=== PATIENT | female | born 1965 | race Caucasian/White ===

== ENCOUNTER 2021-10-19 16:18 | Emergency (ER) | payer SELFPAY ==
[~2021-10-19] VITALS: Ht 165.1 cm; Wt 62.6 kg
--- NOTE | 2021-10-19 16:50 | NUR ---
BIB DAUGHTER C/O R FLANK PAIN AND FEVER LAST NIGHT. AAOX4, VSS. RR EVEN & UNLABORED. DENIES CP, SOB, DIZZINESS, N/V. WILL CONT TO MONITOR,
--- NOTE | 2021-10-19 17:00 | NUR ---
DR. MORALES AT BS FOR YOUNGAL.
[2021-10-19 18:50] LABS: CALCIUM, SERUM 8.7 mg/dL (8.5-10.1); CREATININE 0.9 mg/dL (0.6-1.3); POTASSIUM 3.5 mmol/L (3.5-5.1)
--- NOTE | 2021-10-19 18:50 | NUR ---
PT STABLE, NAD NOTED AT THIS TIME. WILL CONT TO MONITOR.
[2021-10-19 18:56] LABS: ALBUMIN 3.8 g/dL (3.4-5.0); BILIRUBIN,DIRECT 0.1 mg/dL (0.0-0.2); BILIRUBIN,TOTAL 0.2 mg/dL (0.2-1.0); TOTAL PROTEIN, SERUM 7.4 g/dL (6.4-8.2)
[2021-10-19 19:46] LABS: BILIRUBIN,URINE NEGATIVE (NEGATIVE); COLOR,URINE YELLOW (YELLOW); LEUKOCYTE ESTERASE ,URINE NEGATIVE (NEGATIVE); NITRITE, URINE NEGATIVE (NEGATIVE); PROTEIN,URINE NEGATIVE (NEGATIVE); UGLUCOSE NEGATIVE (NEGATIVE); UROBILINOGEN,URINE 0.2 EU/dL (0.2)
[2021-10-19 19:49] LABS: BASOPHILS % (AUTO) 0.6 % (0.0-2.0); EOSINOPHILS % (AUTO) 0.1 % (0.0-6.0); HEMATOCRIT 41 % (33-45); HEMOGLOBIN 13.8 g/dL (11.5-14.8); LYMPHOCYTES # (AUTO) 1.1 K/uL (0.8-4.8); MEAN CORPUSCULAR HGB CONC 34 g/dl (31.0-36.0); MEAN CORPUSCULAR VOLUME 90 fL (82-100); MONOCYTES # (AUTO) 0.6 K/uL (0.1-1.30); MONOCYTES % (AUTO) 16.8 % (2.0-12.0); NEUTROPHILS # (AUTO) 1.7 K/uL (1.8-8.9); NEUTROPHILS % (AUTO) 49.5 % (43.0-81.0); PLATELET COUNT (AUTO) 199 K/uL (150-450); RED BLOOD CELL COUNT(AUTO) 4.57 MIL/uL (4.0-5.2); WHITE BLOOD COUNT (AUTO) 3.4 K/uL (4.3-11.0)
[2021-10-19 20:06] LABS: BACTERIA,URINE 1+ /HPF (None Seen); RBC,URINE 21-50 /HPF (0-2); SQUAMOUS EPITHELIAL CELL,UR 0-2 /HPF (None Seen); WBC,URINE 0-2 /HPF (0-3)
[2021-10-19 20:16] LABS: BAND % (MANUAL) 1 % (0.0-5.0); LYMPHOCYTES % (MANUAL) 32 % (16-48); MONOCYTES % (MANUAL) 1 % (0-11.0); NEUTROPHILS % (MANUAL) 66 (42-76)
[2021-10-19] MEDS ORDERED: IBUPROFEN 600 MG TABLET PO ONE (21:30)
--- NOTE | 2021-10-19 21:33 | NUR ---
Patient discharged to home in stable condition. Written and verbal after care instructions given. Patient verbalizes understanding of instruction.
[2021-10-19 21:34] VITALS: BP 132/74
== END 2021-10-19 21:34 | disposition home or self-care (01) ==
LOC: ER 16:22
DX: U07.1 COVID-19 (principal); N20.0 Calculus of kidney; E27.8 Other specified disorders of adrenal gland; J98.11 Atelectasis; Z87.440 Personal history of urinary (tract) infections
CPT/HCPCS: 36415; 71045; 74176; 80048; 80076; 81001; 83605; 83690; 84703; 85007; 85025; 87040 ×2; 87077; 87086; 87186; 87426; 99285; C9803